=== PATIENT | male | born 1950 | race Caucasian/White ===

== ENCOUNTER 2016-04-07 13:03 | Day surgery (SDC) | payer MEDICARE ==
[~2016-04-07] VITALS: Ht 162.6 cm; Wt 72.5 kg
--- NOTE | 2016-04-07 08:36 | PCM.HPANE ---
Patient Data Surgeon Admitting Provider: Attending Provider:Alin Dawkins MD Primary Care Physician:Susan Busby Other Provider:Mary Fraustoingham Anesthesia Reason for Visit Colon Cancer Screening Ht/WT & BMI Body Mass Index Allergies Coded Allergies: naproxen (Verified Adverse Reaction, Intermediate, abd pain, 04/07/16) Past Anesthesia History Anesthesia History: Denies:: Anesthesia Reactions Diabetes History Hx Diabetes?: No MRSA MRSA: No Medications Active Scripts Metoprolol Tartrate 50 Mg Qelamv32 Mg PO BID #14 TABLET Ref 0 Prov:TAMI ANN DO 09/16/15 Lisinopril 30 Mg Aafhtx56 Mg PO DAILY #14 TABLET Ref 0 Prov:TAMI ANN DO 09/16/15 Atorvastatin (Lipitor)40 Mg Dnoicl27 Mg PO DAILY #14 TABLET Ref 0 Prov:TAMI ANN DO 09/16/15 Aspirin 81 Mg Rhsntg07 Mg PO DAILY #30 BOTTLE Ref 0 Prov:TAMI ANN DO 09/16/15 Citalopram 20 Mg Vzwuwq84 Mg PO DAILY #14 TABLET Ref 0 Prov:TAMI ANN DO 09/16/15 Reported Medications Lorazepam 1 Mg Tablet1 Mg PO TID PRN For Anxiety Ref 0 04/06/16 HydrOXYzine HCl 10 Mg Wiffww88 Mg PO TID PRN For Itching Ref 0 04/06/16 History History of ENT Problems?: Yes HEENT History: Positive for:: Cataracts Denies:: Dysphagia Sinus Problem (Both eyes) Hx of Heart Problems?: Yes Cardiovascular History: Positive for:: Hypertension Denies:: Cardiac Surgery Chest Pain Congestive Heart Failure Irregular Heartbeat Pacemaker Thrombophlebitis Hx of Respiratory Problem?: No Respiratory History: Denies:: Tuberculosis Hx Neurologic Problems?: No Hx of GI Problems?: Yes Gastrointestinal History: Positive for:: Diverticulitis Heartburn Denies:: Gastroesphageal Reflux Gastrointestinal Bleeding Hepatitis Hiatal Hernia Rectal Bleeding Hx of Problems?: No Male Hx: Denies:: Prostate Problems Scrotal Mass Testicular Surgery Hx Musculoskeletal Problems?: No Hx of Psycho/Social Problems?: Yes Psycho Social History: Positive for:: Hx Depression Denies:: Anxiety Bipolar Disorder Suicide Attempt Hx Surgeries?: Yes (DIVERTICULITIS, bilat cataract repair) Hx Any Other Health Problems?: Yes Other History: Denies:: Cancer Hospitalization Thyroid Disease History Blood Transfusions: Denies:: Blood Transfusions Hx Diabetes: No Hx Alcohol Use: Yes (couple beers daily/ more lately)Hx Substance Use: Yes ( marijuana) Smoking Status: Current Every Day Smoker Heavy Tobacco Smoker Have You Smoked inLast 12 mo: Yes Stop/Bang Risk Assessment Category Category 1A: Patient has history of documented sleep apnea, and HAS NOT received any narcotic, sedative or anesthesia administration during this stay. Category 1B: Patient has history of documented sleep apnea, and HAS received any narcotic , sedative or anesthesia administration during this stay Category 2: Patient has SUSPECTED Obstructive Sleep Apnea, and HAS received any narcotic , sedative or anesthesia administration during this stay. Category 3: Patient has SUSPECTED Obstructive Sleep Apnea and HAS NOT received narcotic, sedative or anesthesia administration during this stay. Category 4: Outpatient in Procedural Areas with known sleep apnea or who screen positive for High Risk via the STOP/BANG questionnaire. Exam Exam General Appearance: Alert, Oriented X3, Cooperative, No Acute Distress HEENT/AIRWAY: MP 1 Lungs: Normal Air Movement Heart: Regular Rate/Rhythm Plan Impression Patient chart reviewed, patient interviewed and anesthestic plan with risks, benefits, and alternatives discussed, and informed consent obtained. ASA Physical Status: ASA3 Severe Disease Anesthetic Plan: MAC Bene/Risks/Altern/Consents: Yes HP Complete Prior to Induction: Yes Emily Barillas DO Apr 07, 2016 08:35
[~2016-04-07 13:03] MED LIST: ASPI-973 PO; CITA20TA11 PO; HYDR-3605 PO; LIP40 PO; LISI30TA5 PO; LORA1TAB PO; Lactated Ringer's 1,000 ML IV ONE; METO50TA3 PO
[2016-04-07] MEDS ORDERED: Propofol 10,000 mCg/mL 20 mL Inj ONE (13:04)
[2016-04-07 13:43] VITALS: BP 130/88; PULSE 76; RESP 16; O2SAT 95
[2016-04-07 14:26] VITALS: BP 81/57; PULSE 75; RESP 17; O2SAT 94
--- NOTE | 2016-04-07 14:32 | PCM.ANEP2 ---
Post Anesthesia Evaluation ASA/CMS Post Anesthesia VS in Patient's Normal Range?: Yes Resp Stable; Airway Patent?: Yes CV Function & Hydration Stable: Yes Mental Status Recovered?: Yes Pain control Satisfactory?: Yes N/V Control Satisfactory?: Yes Emily Barillas DO Apr 07, 2016 14:32
--- NOTE | 2016-04-07 14:32 | PCM.ANEP1 ---
Post Anesthesia Phase 1 PACU Phase 1 Assessment Vital Signs Vital Signs Date Time Temp Pulse Resp B/P Pulse Ox O2 Delivery O2 Flow Rate FiO2 04/07/16 14:26 75 17 81/57 94 Room Air 04/07/16 13:43 37.0 76 16 130/88 95 Room Air Anesthetic Administered: MAC Level of Alertness: Sleepy, easy to arouse MEMBRENO's with Equal Strength: Yes Pain: No Nausea or Vomiting: No Oxygen Delivery: Room Air Lungs: Normal Air Movement Emily Barillas DO Apr 07, 2016 14:32
[2016-04-07 14:36] VITALS: BP 92/55; PULSE 74; RESP 17; O2SAT 94
[2016-04-07 14:49] VITALS: BP 112/77; PULSE 73; RESP 17; O2SAT 94
--- NOTE | 2016-04-07 14:57 | ENDO ---
[address] [address] ENDOSCOPY PROCEDURE PATIENT: MARLEY SANDOVAL : 1950 MR#: [id number] ADMIT: 04/07/2016 JOB ID: [id number] DATE OF SERVICE: 04/07/2016 PRIMARY CARE PHYSICIAN: TONI Guo. PROCEDURE: Screening colonoscopy. INDICATION: The patient is a 65-year-old man whose most recent colonoscopy was more than 20 years ago. EQUIPMENT: [employer]. SEDATION: Monitored anesthesia care was provided by anesthesiologist provider. PREPARATION QUALITY: Good. COMPLICATIONS: None identified. PROCEDURE INFORMATION: The patient was brought into the endoscopy suite and placed in the left lateral decubitus position. Sedation was achieved per the anesthesiologist. Digital rectal exam was performed and unremarkable. The scope was then introduced through the anus and advanced under direct visualization through to the cecum. The ileocecal valve, as well as the appendiceal orifice, were both identified and photographed. Quality of the prep was good. The scope was then slowly withdrawn, carefully examining the mucosa for any defects or polyps. There were scattered diverticula throughout the entire colon. In the rectum, retroflexed views were obtained. The scope was then withdrawn. FINDINGS: Diverticulosis. RECOMMENDATION: Repeat screening colonoscopy in 10 years.
[2016-06-01] MEDS ORDERED: ATOR80TA77 PO (12:59)
[2016-06-01] MEDS ORDERED: ACET-2766 PO (12:59)
[2016-06-01] MEDS ORDERED: GABAPENTIN PO (13:16)
== END 2016-04-07 23:59 | disposition home or self-care (01) ==
LOC: END 13:03
PROVIDERS: ATTEND General Practice
DX: Z12.11 Encounter for screening for malignant neoplasm of colon (principal); K57.30 Diverticulosis of large intestine without perforation or abscess without bleeding; I10 Essential (primary) hypertension; E78.5 Hyperlipidemia, unspecified; F10.10 Alcohol abuse, uncomplicated; F17.210 Nicotine dependence, cigarettes, uncomplicated; F41.8 Other specified anxiety disorders; R45.851 Suicidal ideations; Z90.49 Acquired absence of other specified parts of digestive tract
CPT/HCPCS: G0121; J2250; J7120

== ENCOUNTER 2016-07-26 15:21 | Emergency (ER) | payer MEDICARE ==
[~2016-07-26] VITALS: Ht 162.6 cm; Wt 77.3 kg
[~2016-07-26 15:21] MED LIST changes: +ACET-2766 PO; +ATOR80TA77 PO; +GABAPENTIN PO; -LIP40 PO; -LISI30TA5 PO; -LORA1TAB PO; -Lactated Ringer's 1,000 ML IV ONE
[2016-07-26 15:22] VITALS: BP 148/92; PULSE 96; RESP 20; O2SAT 97
--- NOTE | 2016-07-26 15:41 | ED.REPORT ---
HPI-General Illness Date of Service July 26, 2016 ED Provider: Rito Syed MD The patient is a 65 year old male who presents to the ED due to alcohol withdrawal since yesterday. The pt decided he wanted to get sober and decided to quit drinking alcohol yesterday. His last drink was 1/2 beer this morning. C/ o associated shakes, weakness, nausea, tremors, cramping, diaphoresis and vomiting. He has been through withdrawal several times previously and thinks he has been admitted for symptoms. There is no one at home with him, his is on vacation. He does not want to be admitted to the hospital and would prefer outpatient care. Nursing Notes Stated Complaint: ALCOHOL WITHDRAWL Chief Complaint: Substance Abuse Nursing Notes Reviewed: Yes Allergies: Coded Allergies: naproxen (Verified Adverse Reaction, Intermediate, abd pain, 06/01/16) Scheduled ([Gabapentin]) PO DAILY 06/01/16 UNSURE OF DOSE - JUST STARTED MED THIS WEEK. Acetaminophen (Tylenol Arthritis) 650 Mg Tablet.er 1,300 MG PO BID Aspirin (Aspirin) 81 Mg Tablet 81 MG PO DAILY Atorvastatin Calcium (Atorvastatin Calcium) 80 Mg Tablet 80 MG PO DAILY Citalopram (Citalopram) 20 Mg Tablet 20 MG PO DAILY Metoprolol Tartrate (Metoprolol Tartrate) 50 Mg Tablet 50 MG PO BID Scheduled PRN HydrOXYzine HCl (HydrOXYzine HCl) 10 Mg Tablet 25 MG PO TID PRN PRN For Itching General Time Seen by MD: 15:38 Chief Complaint Other (EtOH withdrawal) Hx Obtained From: Patient Arrived By: Walk-in Sudden in Onset?: Yes Onset Occurred: Yesterday Context of Onset: EtOH use Symptom Duration: Since onset Severity: Current: No pain currently Recent Healthcare: No recent doctor visit, No recent hospitalization Similar Sx Previous: Yes Past Medical History Past Medical History Depression HTN L&I elbow injury--on disability trochanteric bursitis diverticulitis EtOH abuse Past Surgical History abdominal surgery colectomy for diverticulitis Sigmoidectomy Reports: Cataract surgery Smoking History Current Every Day Smoker, Heavy Tobacco Smoker Social History Pt is a long standing alcoholic. He was discharged 09/16/15 after being hospitalized for detox and has not had a drink since. Alcohol Use: >5 per day Drug Use: THC Other Social History: Ambulatory Status Independent Review of Systems shakes, weakness, nausea, tremors, cramping, diaphoresis and vomiting, Full Review of Systems GI: Reports: Diarrhea, Nausea, Vomiting Skin: Reports Diaphoresis Neurologic: Reports: Weakness, Denies: Change LOC, Dizziness, Headache, Lightheaded Psychiatric: Denies: Suicidal ideation Complete sys rev & neg: except as marked. Physical Exam Vital Signs Vital Signs Date Time Temp Pulse Resp B/P Pulse Ox O2 Delivery O2 Flow Rate FiO2 07/26/16 17:12 96 15 136/84 95 07/26/16 15:22 36.4 96 20 148/92 97 Room Air Initial VS: Reviewed Head / Eyes: Atraumatic, Normocephalic, PERRL ENT: Mucous membranes moist, Conjunctiva normal Neck: Supple, Non-tender Respiratory: Breath sounds normal, Clear to auscultation, No respiratory distress Cardiovascular: Regular rate & rhythm, Heart sounds normal, Intact distal pulses Abdomen / GI: Soft, Non-tender, No guarding, No rebound, No distention Back: No CVA tenderness Lymphatic: No lymphadenopathy Skin: Warm, Dry Neurologic: Alert, Oriented Upper Extremities Upper Extremity / MS: No swelling fine tremors bilateral Interpretation & Diagnostics Lab Results Interpretation Test 07/26/16 16:35 Hold Urine Received (Received) Re-Eval/Medical Decision Med Decision/Clinical Course 65-year-old male long history of alcohol abuse presenting requesting Ativan for alcohol which all. He is not overtly withdrawing. His heart rate is in the 90s. He is a very small tremor. He has no history of seizures or DTs. He refuses to be admitted to the hospital or to an inpatient facility. He does not have anyone at home with him. He has been tapering off his alcohol. I do not feel comfortable sending him home with an Ativan taper without being in the care of someone else. I informed him of this and he tells me he is going to go home and drink. No be discharged home with return precautions and symptoms of withdrawal. 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 He does not want to go to an outpatient treatment center. He has a doctor's appointment tomorrow with his PCP. Time of Eval: 16:56 Re-Evaluation/Progress Note: Pt rechecked. Presented pt with options of going to [facility] or returning home. It is against hospital policy to send pt home with ativan. Counseled Regarding: Diagnosis, Lab results, Need for follow-up, When/why to return to ED Discharge & Departure Primary Impression: Alcohol withdrawal syndrome Complication of substance-induced condition: uncomplicated Qualified Code: F10.230 - Alcohol dependence with withdrawal, uncomplicated Disposition: Home Discharge Condition All VS Reviewed: Yes Condition: Stable Patient Instructions: Alcohol Withdrawal (ED) Additional Instructions: Thank you for entrusting us with your care today. It is dangerous to go through alcohol withdrawal by yourself. I cannot send you home alone with Ativan. Drink plenty of water and stay well hydrated. If your withdrawal symptoms get worse, or you have any difficulty breathing, sweating, increased tremors, shaking, syncopal episode, dizziness, or weakness return to the Emergency Room immediately. Good luck with your sobriety! Referrals: Susan Busby (PCP) Scribe Attestation Portion of this note were transcribed by Aurora Hudson. I, Dr. Syed, personally performed the history, physical exam, and medical decision-making: I reviewed and confirmed the accuracy for the information in the transcribed note. Signed by: jennifer Ferro, 07/26/16 1800 copies to: Susan Busby Ben M MD July 26, 2016 15:41 Aurora Hudson July 26, 2016 15:49
[2016-07-26] MEDS ORDERED: _LORazepam 2 MG Tablet PO SCH (15:50)
[2016-07-26 17:12] VITALS: BP 136/84; PULSE 96; RESP 15; O2SAT 95
== END 2016-07-26 17:10 | disposition home or self-care (01) ==
LOC: SED 15:21
DX: F10.230 Alcohol dependence with withdrawal, uncomplicated (principal); F32.9 Major depressive disorder, single episode, unspecified; I10 Essential (primary) hypertension; F17.200 Nicotine dependence, unspecified, uncomplicated; Z88.8 Allergy status to other drugs, medicaments and biological substances; Z79.82 Long term (current) use of aspirin

== ENCOUNTER 2016-09-18 13:44 | Emergency (ER) | payer MEDICARE ==
[~2016-09-18] VITALS: Ht 162.6 cm; Wt 75.0 kg
[2016-09-18 13:47] VITALS: BP 175/101; PULSE 127; RESP 20; O2SAT 98
[2016-09-18] MEDS ORDERED: Ondansetron 2 mg/mL 2 mL Inj ONE ×2 (13:57→14:12)
[2016-09-18 14:25] LABS: BASOPHILS % (AUTO) 0.2 % (0-3); EOSINOPHILS % (AUTO) 0 % (0-5); MONOCYTES % (AUTO) 11.2 % (4-12); Mean Corpuscular Hemoglobin 32.2 pg (27.0-35.0); Mean Corpuscular Volume 90.1 fL (81-100); NEUTROPHILS % (AUTO) 83.2 % (40-74); Platelet Count 162 bil/L (150-400)
[2016-09-18] MEDS ORDERED: 0.9% Sodium Chloride 1,000 ML IV ONE (14:38)
[2016-09-18] MEDS ORDERED: Ondansetron 2 mg/mL 2 mL Inj IVPUSH ONE (14:40)
[2016-09-18 14:44] LABS: Magnesium 2.6 mg/dL (1.6-2.6)
--- NOTE | 2016-09-18 15:10 | ED.REPORT ---
HPI-General Illness Date of Service Sep 18, 2016 ED Provider: Babatunde Garcia MD 65 y/o male with a hx of HTN, COPD, chronic back pain and alcohol abuse presents to the ED complaining of worsening nausea and vomiting food for the last two days.The pt was also experiencing diarrhea which resolved after he took Pepto Bismol. However, the dry heaving and vomiting persisted. In the ED, the pt was given Zofran which significantly improved his sx. He had also been shaking though states that it has gotten better in the ED. He denies urinary retention, urinary and fecal incontinence and abdominal pain. The pt has tried to quit in the past and experienced similar sx then. He denies having seizures due to withdrawal. His last drink was 2 days ago. Nursing Notes Stated Complaint: EXTREME NAUSEA AND VOMITING Chief Complaint: Male Abdominal Pain Nursing Notes Reviewed: Yes Allergies: Coded Allergies: naproxen (Verified Adverse Reaction, Intermediate, abd pain, 06/01/16) Scheduled ([Gabapentin]) PO DAILY 06/01/16 UNSURE OF DOSE - JUST STARTED MED THIS WEEK. Acetaminophen (Tylenol Arthritis) 650 Mg Tablet.er 1,300 MG PO BID Aspirin (Aspirin) 81 Mg Tablet 81 MG PO DAILY Atorvastatin Calcium (Atorvastatin Calcium) 80 Mg Tablet 80 MG PO DAILY Citalopram (Citalopram) 20 Mg Tablet 20 MG PO DAILY Metoprolol Tartrate (Metoprolol Tartrate) 50 Mg Tablet 50 MG PO BID Scheduled PRN HydrOXYzine HCl (HydrOXYzine HCl) 10 Mg Tablet 25 MG PO TID PRN PRN For Itching General Time Seen by MD: 14:52 Chief Complaint Vomiting Hx Obtained From: Patient Arrived By: Walk-in Sudden in Onset?: Yes Onset Occurred: 2 days ago Symptom Duration: Since onset Severity: Current: No pain currently Severity: Maximum: No pain Recent Healthcare: Recent doctor visit Similar Sx Previous: Yes Past Medical History Past Medical History Depression HTN L&I elbow injury--on disability trochanteric bursitis diverticulitis EtOH abuse Past Surgical History abdominal surgery colectomy for diverticulitis Sigmoidectomy Reports: Cataract surgery Smoking History Current Every Day Smoker Social History Alcohol Use: >5 per day Drug Use: THC Other Social History: Ambulatory Status Independent Review of Systems Reports: dry heaving Full Review of Systems GI: Reports: Diarrhea (resolved), Nausea, Vomiting Neurologic: Reports: Shaking (improving) Complete sys rev & neg: except as marked. Physical Exam Constitutional: Well-developed, well-nourished. Not diaphoretic. Head: Normocephalic and atraumatic. Mouth/Throat: Oropharynx is clear and moist. No oropharyngeal exudate. Eyes: EOM are normal. Pupils are equal, round, and reactive to light. Neck: Supple, no tracheal deviation. Cardiovascular: Tachycardic, regular rhythm. Equal and intact distal pulses throughout. Pulmonary/Chest: Effort normal and breath sounds normal. No respiratory distress. Abdominal: Soft. No distension. There is no tenderness to palpation, rebound, or guarding. Bowel sounds present. Negative Galicia's sign. Musculoskeletal: Range of motion grossly intact, moving all extremities. No edema or tenderness appreciated. Neurological: AOx3. Grossly nonfocal exam. Strength and sensation intact and equal to bilateral upper and lower extremities. Somewhat tremulous. Skin: Warm and dry, no rashes or pallor appreciated. Psychiatric: Appropriate mood and affect. Behavior appears normal. Vital Signs Vital Signs Date Time Temp Pulse Resp B/P Pulse Ox O2 Delivery O2 Flow Rate FiO2 09/18/16 20:04 36.6 125 20 184/94 95 Room Air 09/18/16 19:54 36.6 125 20 184/94 95 Room Air 09/18/16 13:47 36.6 127 20 175/101 98 Room Air Interpretation & Diagnostics PROCEDURE: US ABDOMEN ([id number]) IMPRESSION: 1. Echogenic changes in the liver consistent with fatty infiltration. 2. Probable sludge in the gallbladder no tenderness, fluid, or wall thickening is appreciated. 3. Body and tail of the pancreas were obscured by bowel gas. Dictated by: Rafal Garcia M.D. on 09/18/2016 at 18:18 Approved by: Rafal Garcia M.D. on 09/18/2016 at 18:22 Lab Results Interpretation Result Diagram: 09/18/16 1400 09/18/16 1400 Test 09/18/16 14:00 White Blood Count 10.5th/mm3 (3.8-10.1) Red Blood Count 4.94mil/mm3 (4.40-5.80) Hemoglobin 15.9g/dL (13.8-17.2) Hematocrit 44.5% (41.0-50.0) Mean Corpuscular Volume 90.1fL (81-100) Mean Corpuscular Hemoglobin 32.2pg (27.0-35.0) Mean Corpuscular Hemoglobin Concent 35.7% (32.0-37.0) Red Cell Distribution Width 14.2% (12.3-15.4) Platelet Count 162bil/L (150-400) Neutrophils (%) (Auto) 83.2% (40-74) Lymphocytes (%) (Auto) 5.2% (14-46) Monocytes (%) (Auto) 11.2% (4-12) Eosinophils (%) (Auto) 0% (0-5) Basophils (%) (Auto) 0.2% (0-3) Sodium Level 138mEq/L (134-144) Potassium Level 3.6mEq/L (3.5-5.2) Chloride Level 90mEq/L (97-108) Carbon Dioxide Level 25mmol/L (18-29) Blood Urea Nitrogen 21mg/dL (8-27) Creatinine 0.85mg/dL (0.76-1.27) Estimat Glomerular Filtration Rate 96mL/min (>59) Glucose Level 147mg/dL (60-99) Lactic Acid Level 2.9mmol/L (0.4-2.0) Calcium Level 9.9mg/dL (8.5-10.1) Magnesium Level 2.6mg/dL (1.6-2.6) Total Bilirubin 2.7mg/dL (0.0-1.2) Aspartate Amino Transf (AST/SGOT) 124U/L (0-50) Alanine Aminotransferase (ALT/SGPT) 61U/L (0-44) Alkaline Phosphatase 87U/L (25-160) Troponin T < 0.010ug/L (0.0-0.011) Total Protein 7.8g/dL (6.4-8.4) Albumin 4.7g/dL (3.4-5.0) Lipase 93U/L (13-60) Hold Portillo Top Tube Received (Received) Lab Results Interpretation: CIWA score = 15 ECG Interpretation ECG Interpretation: Normal sinus rhythm. Rate 99. Significant artifact. Time: 16:18 Interpreted by: ED physician CT Abd / Pelvis Interpretation IMPRESSION: 1.Heterogeneous appearance of the liver most consistent with geographic fatty infiltration occurred since the CT of 03/25/16. 2. Previous appendectomy. 3. Prominent atherosclerotic calcifications. 4. Because of pain is not identified. No evidence to suggest pancreatitis is appreciated. A normal pancreas does not exclude a simple pancreatitis. Dictated by: Rafal Garcia M.D. on 09/18/2016 at 18:50 Approved by: Rafal Garcia M.D. on 09/18/2016 at 19:03 Study type: Abdominal CT IV contrast Interpretation / Wet Read by: Interpret - Radiologist Re-Eval/Medical Decision Med Decision/Clinical Course 65 yo M w/ complex PMHx including alcohol abuse p/w n/v, tachycardia, and tremor over the past several days. Obvious concern for etoh w/d, which the patient agrees with. Initial CIWA score of 15. Last drink a couple of days ago. Discussed admission for alcohol withdrawal and concern for possible alcohol w/d seizures, but patient states that he does not want to be admitted. Pertinent labs include elevated LFTs including a bilirubin of 2.7 (not elevated previously), lactic acid of 2.9, lipase of 93, anion gap of 23. US ordered to eval for fady; CT subsequently ordered to eval for mass. US and CT reviewed, discussed with patient; both negative for acute abnl that would completely explain his symptoms. Troponin negative. On reassessment, he remains tachycardic. He states that he feels better somewhat and would like to be discharged. Im somewhat reticent to do this given need for workup and resolution of his lactate, elevated LFTs and lipase, anion gap etc, not to mention his persistent tachycardia and alcohol withdrawal. Hes insistent that he would like to be discharged home regardless, including after a discussion of the risks of doing so, including seizure, worsening symptoms, and, however remote, . Plan discharge with careful return precautions, PCP f/u Tuesday, and instructions to return if he changes his mind. He verbalized understanding. Time of Eval: 15:58 Re-Evaluation/Progress Note: Discussed diagnosis and plan to admit the pt. He wants to discuss the plan with his before making a decision. Time of Eval: 17:47 Patient Status: Condition improved Re-Evaluation/Progress Note: Rechecked pt. He reports feeling better and wants to go home. Discussed lab results, including high Bilirubin. Recommended admission. The pt understands but does not want to be admited. Informed the pt a CT scan is necessary before discharge. He understands and agrees. Time of Eval: 19:29 Re-Evaluation/Progress Note: Rechecked pt. He endorses some improvement of his sx. Discussed imaging results, diagnosis and advised the pt to reconsider admission. He still wants to leave.Pt understands he is leaving AMA. F/U instructions and RTER warning given. All questions addressed. Counseled Regarding: Diagnosis, Lab results, Need for follow-up, When/why to return to ED Discharge & Departure Primary Impression: Alcohol withdrawal Complication of substance-induced condition: uncomplicated Qualified Code: F10.230 - Alcohol dependence with withdrawal, uncomplicated Additional Impressions: Transaminitis Lactic acidosis Disposition: Home Discharge Condition All VS Reviewed: Yes Patient Instructions: Alcohol Withdrawal (ED) Additional Instructions: Thank you for entrusting us with your care today. Your lab results and imaging results show possible pancreatitis, elevated liver enzymes, and a high lactic acid. I'm not entirely sure of the cause of this right now, but as discussed, I would recommend admission to the hospital for further management and evaluation. You also seem to be going through alcohol withdrawal. Since you stated that you would like to go home despite the risks of leaving, please be sure to follow up with your primary care provider on Tuesday to discuss your lab results and get a repeat appointment. Return to the emergency department immediately if you change your mind, or if you develop persistent vomiting, abdominal pain, difficulty with bowel movement or any new or worsening symptoms. Referrals: Susan Busby (PCP) Crit Care Except Billable Proc Time Spent: 30-74 minutes Services Performed: Patient management by me, Time spent at bedside, Reviewing test results, Reviewing imaging, Discussing patient care, Documentation in record, Time with fam/surrogate Critical Care Notes: Please see MDM. He remained persistently tachycardic despite IV fluid resuscitation and would require intensive monitoring had he not left AMA. Giseleibsohail Attestation Portions of this note were transcribed by Yuridia Maldonado. I,, personally performed the history, physical exam and medical decision-making;I reviewed and confirmed the accuracy of the information in the transcribed note. Signed by Wilma Lemus. 09/18/16 19:54 copies to: Susan Busby William B MD Sep 18, 2016 15:10 Yuridia Maldonado Sep 18, 2016 15:58
[2016-09-18] MEDS ORDERED: Lactated Ringer's 1,000 ML IV ONE (16:45)
--- NOTE | 2016-09-18 18:24 | DRSVH ---
PROCEDURE: US ABDOMEN ([id number]) INDICATIONS: eval for fady, elev LFTs and bili TECHNIQUE: Real-time scanning was performed of the abdominal and retroperitoneal organs, documentation. COMPARISON: None. FINDINGS: Liver: Liver is normal in size 16.7 cm and homogeneous in echotexture. The appearance of the liver w hich suggests fatty infiltration is a likely cause for the diffuse increased echogenicity and loss of detail. Gallbladder: Is thought to be sludge in the gallbladder. No wall thickening pericholecystic fluid or tenderness is seen. Biliary ducts: Is not seen intrahepatically and the extrahepatic portion is obscured by bowel gas. Pancreas: Head of the pancreas is normal. Body and tail are obscured by bowel gas. Maximum dimension is 12.5 cm. Spleen: Spleen is normal in size and homogeneous in echotexture. Kidneys: Kidneys are normal in size and echotexture. Right kidney measures 9.8 cm long; left kidney measures 11.0 cm long. No hydronephrosis or nephrolithiasis. No solid masses. Aorta: All portions of the abdominal aorta aorta is normal in caliber at less than 3 cm. Iliacs: Proximal common iliac arteries were not imaged IVC: Intrahepatic inferior vena cava is patent. Miscellaneous: No free abdominal fluid. IMPRESSION: 1. Echogenic changes in the liver consistent with fatty infiltration. 2. Probable sludge in the gallbladder no tenderness, fluid, or wall thickening is appreciated. 3. Body and tail of the pancreas were obscured by bowel gas. Dictated by: Rafal Garcia M.D. on 09/18/2016 at 18:18 Approved by: Raafl Garcia M.D. on 09/18/2016 at 18:22
--- NOTE | 2016-09-18 19:06 | DRSVH ---
PROCEDURE: CT ABDOMEN AND PELVIS WITH CONTRAST ([id number]) INDICATIONS: abd pain, n/v, incr bili, LFTs, lipase; eval cause TECHNIQUE: After the administration of intravenous contrast, 5 mm thick sections acquired from the diaphragm to the symphysis. 5 mm coronal and sagittal reformats were acquired. For radiation dose reduction, the following was used: automated exposure control, adjustment of mA and/or kV according to patient siz e. COMPARISON: [facility], CT, CT CHEST W CON, 03/25/2016, 9:28. FINDINGS: Image quality: Excellent. ABDOMEN: Lung bases: Lung bases are clear. Heart size is normal. Solid organs: Since the CT scan of the thorax are 03/25/16 the liver has markedly changed in appearanc e. There are irregular areas of decreased attenuation in the left lobe and the right lobe without arc hitectural distortion of the vasculature. The appearance would be most consistent with prominent geog raphic fatty infiltration. No appearance to suggest periportal edema which would suggest hepatitis is seen. In the amount of abnormality would be extremely abnormal as a change from March of this were hepatocellular carcinoma. Other lesions cause mass effect. Spleen is normal in appearance. Gallbladd er is within normal limits. Biliary system is non dilated. Pancreas enhances normally. No adrenal nodules. Kidneys demonstrate normal size and enhancement, without hydronephrosis. Peritoneum and bowel: Bowel loops demonstrate normal wall thickness and caliber. No free fluid or a ir. Vascular clips in the right iliac fossa would suggest previous appendectomy. Nodes and vessels: No retroperitoneal or mesenteric adenopathy by size criteria. Aorta and inferior vena cava are normal in size. Aorta is prominently calcified. Miscellaneous: No ventral hernias. PELVIS: Genitourinary: Bladder wall thickness is normal. Miscellaneous: No inguinal hernias or adenopathy. Bones: No suspicious bony lesions. No vertebral body compression fractures. IMPRESSION: 1.Heterogeneous appearance of the liver most consistent with geographic fatty infiltration occurred s magdy the CT of 03/25/16. 2. Previous appendectomy. 3. Prominent atherosclerotic calcifications. 4. Because of pain is not identified. No evidence to suggest pancreatitis is appreciated. A normal pa ncreas does not exclude a simple pancreatitis. Dictated by: Rafal Garcia M.D. on 09/18/2016 at 18:50 Approved by: Rafal Garcia M.D. on 09/18/2016 at 19:03
[2016-09-18 19:54] VITALS: BP 184/94; PULSE 125; RESP 20; O2SAT 95
[2016-09-18 20:04] VITALS: BP 184/94; PULSE 125; RESP 20; O2SAT 95
== END 2016-09-18 20:07 | disposition left against medical advice (07) ==
LOC: SED 13:44
DX: F10.230 Alcohol dependence with withdrawal, uncomplicated (principal); E87.2 Acidosis; R74.0 Nonspecific elevation of levels of transaminase and lactic acid dehydrogenase [LDH]; I10 Essential (primary) hypertension; F32.9 Major depressive disorder, single episode, unspecified; F17.200 Nicotine dependence, unspecified, uncomplicated; J44.9 Chronic obstructive pulmonary disease, unspecified; Z98.890 Other specified postprocedural states; Z79.82 Long term (current) use of aspirin; Z53.29 Procedure and treatment not carried out because of patient's decision for other reasons
CPT/HCPCS: 36415; 74177; 76700; 80053; 83605; 83690; 83735; 84484; 85025; 93005; 96361; 96374; 99291; J2405; J7030; J7120; Q9967